=== PATIENT | female | born 1965 | race Caucasian/White ===

== ENCOUNTER 2017-04-20 07:26 | Day surgery (SDC) | payer OTHER ==
[2017-04-20] VITALS (10 sets, daily range): BP systolic 148–174; BP diastolic 57–68
[~2017-04-20] VITALS: Ht 167.6 cm; Wt 71.2 kg
--- OUTSIDE RECORDS SUMMARY | 2017-04-20 07:30 | XMS REPORT ---
Author Author SURY EPSTEIN Organization eClinicalWorks Address Unknown Phone Unavailable Care Team Providers Care Die Drawing Checker Name Role Phone SURY EPSTEIN CP Unavailable Allergies No Known Allergies Problems Problem Type Condition Code Onset Dates Condition Status Problem Tobacco abuse Z72.0 Active Problem Bradycardia R00.1 Active Problem LVH (left ventricular hypertrophy) I51.7 Active Problem Tobacco abuse counseling Z71.6 Active Problem Anxiety F41.9 Active Problem High risk medication use Z79.899 Active Problem Hyperglycemia R73.9 Active Problem Hypertension I10 Active Problem Chronic atrial fibrillation I48.2 Active Problem Hyperlipidemia E78.5 Active Problem Coronary artery disease I25.10 Active Medications Medication Code System Code Instructions Start Date End Date Status Dosage Xanax [facility] [address]-57 0.5 MG Orally Twice a day for extreme anxiety (Pt must follow up in January) 1 tablet Results No Known Results Summary Purpose eClinicalWorks Submission
--- OUTSIDE RECORDS SUMMARY | 2017-04-20 07:30 | XMS REPORT ---
Author Author GILLIAN FRAIRE [facility] eClinicalWorks Address Unknown Phone Unavailable Care Team Providers Care Vtc Technician Name Role Phone GILLIAN FRAIRE CP Unavailable Allergies, Adverse Reactions, Alerts Substance Reaction Event Type Daypro hives Drug Allergy Problems Problem Type Condition Code Onset Dates Condition Status Problem Tobacco abuse Z72.0 Active Problem Bradycardia R00.1 Active Problem LVH (left ventricular hypertrophy) I51.7 Active Problem Anxiety F41.9 Active Problem High risk medication use Z79.899 Active Problem Hyperglycemia R73.9 Active Problem Hypertension I10 Active Problem Chronic atrial fibrillation I48.2 Active Problem Hyperlipidemia E78.5 Active Problem Coronary artery disease I25.10 Active Assessment Bradycardia R00.1 Active Assessment Hypertension I10 Active Problem Tobacco abuse counseling Z71.6 Active Medications Medication Code System Code Instructions Start Date End Date Status Dosage Xanax [facility] [place] 2] [address]-92 0.5 MG Orally Twice a day for extreme anxiety (Pt must follow up in January) 1 tablet Albuterol Sulfate HFA [facility] [place]NOTE 2] [address]-21 108 (90 Base) MCG/ACT Inhalation every 4 hrs 2 puffs as needed Nitroglycerin [facility] [place] 2] [address]-27 0.4 MG Sublingual not defined Atenolol [facility] [place]NOTE 2] [address]-45 50 MG Orally Once a day 1 tablet Aspirin [facility] [place]NOTE 2] [address]-30 325 MG Orally Once a day 1 tablet Ibuprofen [facility] [place]NOTE 2] [address]-25 200 MG Orally every 6 hrs 1 tablet as needed Acetaminophen Extra Strength [facility] [place]NOTE 2] [address]-06 500 MG Orally every 6 hrs 1 tablet as needed Wellbutrin XL [facility] [place]NOTE 2] [address]-42 150 MG Orally Once a day 1 tablet in the morning Hydrochlorothiazide [facility] [place]NOTE 2] [address]-29 25 MG Orally Once a day 1 tablet Procedures Procedure Coding System Code Date Office Visit, Est Pt., Level 4 CPT-4 24881 December 13, 2015 MEASURE BLOOD OXYGEN LEVEL CPT-4 72170 December 13, 2015 Vital Signs Date/Time: December 13, 2015 Cardiac Monitoring Heart Rate 60 bpm Weight 156 lbs Height 64.5 in BMI 26.36 Index Oximetry 97 % Blood Pressure Diastolic 62 mmHg Blood Pressure Systolic 152 mmHg Results No Known Results Summary Purpose eClinicalWorks Submission
--- OUTSIDE RECORDS SUMMARY | 2017-04-20 07:30 | XMS REPORT ---
Author Author SURY EPSTEIN [facility] eClinicalWorks Address Unknown Phone Unavailable Care Team Providers Care Ranch Rider Name Role Phone SURY EPSTEIN CP Unavailable Allergies, Adverse Reactions, Alerts Substance Reaction Event Type Daypro hives Drug Allergy Problems Problem Type Condition Code Onset Dates Condition Status Assessment Hyperglycemia R73.9 Active Problem Tobacco abuse Z72.0 Active Problem Tobacco abuse counseling Z71.6 Active Assessment High risk medication use Z79.899 Active Assessment Anxiety F41.9 Active Problem Anxiety F41.9 Active Problem High risk medication use Z79.899 Active Problem Hyperglycemia R73.9 Active Problem Bradycardia R00.1 Active Problem LVH (left ventricular hypertrophy) I51.7 Active Problem Hypertension I10 Active Problem Chronic atrial fibrillation I48.2 Active Medications Medication Code System Code Instructions Start Date End Date Status Dosage Nitroglycerin [facility] [address]-06 0.4 MG Sublingual not defined Ibuprofen [facility] [address]-92 200 MG Orally every 6 hrs 1 tablet as needed Aspirin [facility] [address]-19 325 MG Orally Once a day 1 tablet Hydrochlorothiazide [facility] [address]-37 25 MG Orally Once a day 1 tablet Atenolol [facility] [address]-17 25 MG Orally Once a day 1 tablet Xanax [facility] [address]-89 0.5 MG Orally Twice a day for extreme anxiety 1 tablet Albuterol Sulfate HFA [facility] [address]-21 108 (90 Base) MCG/ACT Inhalation every 4 hrs 2 puffs as needed Wellbutrin XL [facility] [address]-31 150 MG Orally Once a day 1 tablet in the morning Procedures Procedure Coding System Code Date Office Visit, Est Pt., Level 3 CPT-4 98747 Aug 06, 2015 GLYCATED HEMOGLOBIN TEST CPT-4 58798 Aug 06, 2015 Vital Signs Date/Time: Aug 06, 2015 Temperature 97.5 F Weight 168.0 lbs Height 64.5 in BMI 28.39 Index Blood Pressure Diastolic 56 mmHg Blood Pressure Systolic 138 mmHg Cardiac Monitoring Heart Rate 55 bpm Results No Known Results Summary Purpose eClinicalWorks Submission
--- OUTSIDE RECORDS SUMMARY | 2017-04-20 07:30 | XMS REPORT ---
Author Author GILLIAN FRAIRE Organization eClinicalWorks Address Unknown Phone Unavailable Care Team Providers Care Aircraft Inspection Record Clerk Name Role Phone GILLIAN FRAIRE CP Unavailable Allergies No Known Allergies Problems Problem Type Condition Code Onset Dates Condition Status Assessment Chronic atrial fibrillation I48.2 Active Problem Tobacco abuse Z72.0 Active Problem Tobacco abuse counseling Z71.6 Active Problem Anxiety F41.9 Active Problem High risk medication use Z79.899 Active Problem Hyperglycemia R73.9 Active Problem Bradycardia R00.1 Active Problem LVH (left ventricular hypertrophy) I51.7 Active Problem Hypertension I10 Active Problem Chronic atrial fibrillation I48.2 Active Assessment Hypertension I10 Active Assessment Chest pain R07.9 Active Assessment Paroxysmal atrial fibrillation I48.0 Active Assessment Sinus bradycardia R00.1 Active Assessment Bradycardia R00.1 Active Medications No Known Medications Results Name Result Date Reference Range Unit Abnormality Flag Lexiscan Stress Nuclear Test Summary Purpose eClinicalWorks Submission
--- OUTSIDE RECORDS SUMMARY | 2017-04-20 07:30 | XMS REPORT ---
Author Author SURY EPSTEIN [facility] eClinicalWorks Address Unknown Phone Unavailable Care Team Providers Care Color Mixer Name Role Phone SURY EPSTEIN CP Unavailable Allergies, Adverse Reactions, Alerts Substance Reaction Event Type Daypro hives Drug Allergy Problems Problem Type Condition Code Onset Dates Condition Status Assessment Tobacco abuse counseling Z71.6 Active Assessment LVH (left ventricular hypertrophy) I51.7 Active Assessment Tobacco abuse Z72.0 Active Problem Bradycardia R00.1 Active Problem LVH (left ventricular hypertrophy) I51.7 Active Problem Chronic atrial fibrillation I48.2 Active Assessment Chronic atrial fibrillation I48.2 Active Assessment Bradycardia R00.1 Active Problem Tobacco abuse Z72.0 Active Problem Tobacco abuse counseling Z71.6 Active Medications Medication Code System Code Instructions Start Date End Date Status Dosage Atenolol [facility] [address]-77 25 MG Orally Once a day 1 tablet Aspirin [facility] [address]-67 325 MG Orally Once a day 1 tablet Xanax [facility] [address]-38 1 MG Orally every 8 hours as needed 1 tablet Albuterol Sulfate HFA [facility] [address]-88 108 (90 Base) MCG/ACT Inhalation every 4 hrs 2 puffs as needed Nitroglycerin [facility] [address]-43 0.4 MG Sublingual not defined Wellbutrin XL [facility] [address]-99 150 MG Orally Once a day 1 tablet in the morning Hydrochlorothiazide [facility] [address]-06 25 MG Orally Once a day 1 tablet Procedures Procedure Coding System Code Date ELECTROCARDIOGRAM, TRACING CPT-4 35088 Jul 09, 2015 Office Visit, New Pt., Level 3 CPT-4 76918 Jul 09, 2015 MEASURE BLOOD OXYGEN LEVEL CPT-4 57564 Jul 09, 2015 Vital Signs Date/Time: Jul 09, 2015 Temperature 97.6 F Weight 160.9 lbs Height 64.5 in Oximetry 98 % Blood Pressure Diastolic 78 mmHg Blood Pressure Systolic 128 mmHg Cardiac Monitoring Heart Rate 52 bpm BMI 27.19 Index Results No Known Results Summary Purpose eClinicalWorks Submission
--- OUTSIDE RECORDS SUMMARY | 2017-04-20 07:30 | XMS REPORT ---
Author Author GILLIAN FRAIRE Organization eClinicalWorks Address Unknown Phone Unavailable Care Team Providers Care Executive Casino Host Name Role Phone GILLIAN FRAIRE CP Unavailable Allergies, Adverse Reactions, Alerts Substance Reaction Event Type Daypro hives Drug Allergy Problems Problem Type Condition Code Onset Dates Condition Status Assessment Paroxysmal atrial fibrillation I48.0 Active Assessment Sinus bradycardia R00.1 Active Assessment Chest pain R07.9 Active Problem Chronic atrial fibrillation I48.2 Active Problem Bradycardia R00.1 Active Problem Hypertension I10 Active Problem Tobacco abuse counseling Z71.6 Active Assessment Hypertension I10 Active Problem LVH (left ventricular hypertrophy) I51.7 Active Problem Tobacco abuse Z72.0 Active Medications Medication Code System Code Instructions Start Date End Date Status Dosage Hydrochlorothiazide [facility] [address]-94 25 MG Orally Once a day 1 tablet Aspirin [facility] [address]-96 325 MG Orally Once a day 1 tablet Albuterol Sulfate HFA [facility] [address]-12 108 (90 Base) MCG/ACT Inhalation every 4 hrs 2 puffs as needed Nitroglycerin [facility] [address]-59 0.4 MG Sublingual not defined Atenolol [facility] [address]-83 25 MG Orally Once a day 1 tablet Ibuprofen [facility] [address]-80 200 MG Orally every 6 hrs 1 tablet as needed Xanax [facility] [address]-51 1 MG Orally every 8 hours as needed 1 tablet Wellbutrin XL [facility] [address]-35 150 MG Orally Once a day 1 tablet in the morning Procedures Procedure Coding System Code Date Office Visit, Est Pt., Level 5 CPT-4 72953 Jul 12, 2015 MEASURE BLOOD OXYGEN LEVEL CPT-4 23143 Jul 12, 2015 Vital Signs Date/Time: Jul 12, 2015 Cardiac Monitoring Heart Rate 60 bpm Weight 162 lbs Height 64.5 in BMI 27.37 Index Oximetry 98 % Blood Pressure Diastolic 54 mmHg Blood Pressure Systolic 138 mmHg Results No Known Results Summary Purpose eClinicalWorks Submission
--- OUTSIDE RECORDS SUMMARY | 2017-04-20 07:30 | XMS REPORT ---
Author Author SURY EPSTEIN Organization eClinicalWorks Address Unknown Phone Unavailable Care Team Providers Care C4 Planner Name Role Phone SURY EPSTEIN CP Unavailable Allergies No Known Allergies Problems Problem Type Condition Code Onset Dates Condition Status Problem Bradycardia R00.1 Active Problem LVH (left ventricular hypertrophy) I51.7 Active Problem Chronic atrial fibrillation I48.2 Active Assessment LVH (left ventricular hypertrophy) I51.7 Active Problem Tobacco abuse Z72.0 Active Problem Tobacco abuse counseling Z71.6 Active Medications No Known Medications Procedures Procedure Coding System Code Date COMPLETE CBC W/AUTO DIFF WBC CPT-4 60617 Jul 10, 2015 LIPID PANEL CPT-4 27369 Jul 10, 2015 ASSAY OF MAGNESIUM CPT-4 70546 Jul 10, 2015 VENIPUNCT, ROUTINE* CPT-4 03817 Jul 10, 2015 COMPREHEN METABOLIC PANEL CPT-4 21794 Jul 10, 2015 Results Name Result Date Reference Range Unit Abnormality Flag ROUTINE VENIPUNCTURE Summary Purpose eClinicalWorks Submission
--- OUTSIDE RECORDS SUMMARY | 2017-04-20 07:30 | XMS REPORT | Continuity of Care Document ---
Author Author [facility] Organization [facility] Address Unknown Phone Unavailable Allergies Active Description Code Type Severity Reaction Onset Reported/Identified Relationship to Patient Clinical Status Yes oxaprozin [id number] Drug Allergy Unknown N/A 07/30/2015 Medications Problems Date Dx Coded Attending Type Code Diagnosis Diagnosed By 07/30/2015 GILLIAN FRAIRE MD, FACC, FACP CCDS Ot I48.0 07/30/2015 GILLIAN FRAIRE MD, FACC, FACP CCDS Ot R00.1 Procedures Results Encounters ACCT No. Visit Date/Time Discharge Status Pt. Type Provider Facility Loc./Unit Complaint [id number] 07/30/2015 10:53:00 2014 23:59:59 CLS Outpatient GILLIAN FRAIRE MD, FACC FACP CCDS [facility] CARD [id number] 07/29/2015 13:40:00 2014 23:59:59 CLS Outpatient GILLIAN FRAIRE MD, FACC FACP CCDS [facility] CARD [id number] 04/20/2017 07:26:00 ACT Outpatient GILLIAN FRAIRE MD, FACC FACP CCDS [facility] CATH STABLE ANGINA PECTORIS,HTN [id number] 04/20/2017 07:22:00 ACT Outpatient MARCE OLIVAS [facility] CARD I25.10
[2017-04-20] MEDS ORDERED: HEParin (CATH LAB) 2,000 ML IV ONE (08:18)
[2017-04-20] MEDS ORDERED: NS IV 1000 ML 1,000 ML ONE (08:18)
[2017-04-20] MEDS ORDERED: NS IV 1000 ML 1,000 ML IV SCH ×2 (09:15→12:09)
[2017-04-20 09:30] LABS: MEAN PLATELET VOLUME 9.4 FL (7.4-10.4); RED BLOOD COUNT 4.43 10^6/uL (4.35-5.85); RED CELL DISTRIBUTION WIDTH 11.8 % (10.0-14.5); WHITE BLOOD COUNT 7.6 10^3/uL (4.3-11.0)
[2017-04-20 09:40] LABS: INR 0.9 (0.8-1.4); PROTHROMBIN TIME PATIENT 12.4 SEC (12.2-14.7)
[2017-04-20 09:49] LABS: ALBUMIN 4.9 GM/DL (3.2-4.5); BILIRUBIN,TOTAL 0.5 MG/DL (0.1-1.0); CALCIUM 9.9 MG/DL (8.5-10.1); POTASSIUM 4.5 MMOL/L (3.6-5.0); TOTAL PROTEIN 7.7 GM/DL (6.4-8.2)
[2017-04-20] MEDS ORDERED: GEMF600T3 PO (10:05)
[2017-04-20] MEDS ORDERED: NITR0.4T SL (10:05)
[2017-04-20] MEDS ORDERED: ATEN50TA PO (10:05)
[2017-04-20] MEDS ORDERED: HYDR25TA4 PO (10:05)
[2017-04-20] MEDS ORDERED: RT-ALBUINH IH (10:05)
[2017-04-20] MEDS ORDERED: DICL100G18 TP (10:05)
[2017-04-20] MEDS ORDERED: LISI40TA PO (10:05)
[2017-04-20] MEDS ORDERED: ACET-2650 PO (10:05)
[2017-04-20] MEDS ORDERED: ASPI325T32 PO (10:05)
[2017-04-20] MEDS ORDERED: IBUP-30 PO (10:05)
[2017-04-20] MEDS ORDERED: ALPR0.5T PO (10:05)
[2017-04-20] MEDS ORDERED: BUPR-42 PO (10:05)
[2017-04-20] MEDS ORDERED: diphenhydrAMINE 50 MG/ML INJ (BENADRYL) ONE (10:40)
[2017-04-20] MEDS ORDERED: fentaNYL INJECTION 100 MCG/2 ML AMP ONE (10:40)
[2017-04-20] MEDS ORDERED: MIDAZOLAM 5 MG/5 ML (VERSED) VIAL ONE (10:40)
--- NOTE | 2017-04-20 11:16 | Cardiac Procedure Note-CS/ASA ---
Pre-Procedure Note Pre-Op Procedure Note H&P Reviewed The H&P was reviewed, patient examined and no changes noted. Date H&P Reviewed: Apr 20, 2017 Time H&P Reviewed: 11:16 Conscious Sedation Pre-Proced Time Reviewed: 11:16 ASA Class: 3 Airway Mallampati Classification: ([place] appropriate class) I. II. III, IV Lungs Heart ASA score ASA 1: a normal healthy patient ASA 2: a patient with a mild systemic disease (mid diabetes, controlled hypertension, obesity ASA 3: a patient with a severe systemic disease that limits activity (angina , COPD, prior Myocardial infarction) ASA 4: a patient with an incapacitating disease that is a constant threat to life (CHF, renal failure) ASA 5: a moribund patient not expected to survive 24 hrs. (ruptured aneurysm) ASA 6: a declared brain patient whose organs are being harvested. For emergent operations, add the letter E after the classification Grade 3 Sedation Plan: Analgesia, Amnesia, Plan communicated to team members, Discussed options with patient/fam, Discussed risks with patient/fam Note The patient is an appropriate candidate to undergo the planned procedure, sedation, and anesthesia. The patient immediately re-assessed prior to indication. GILLIAN FRAIRE MD FACP FAC CCDS Apr 20, 2017 11:16
--- NOTE | 2017-04-20 12:14 | Discharge Inst-Post CATH ---
Discharge Inst-CATH Post Cardiac Cath D/C Inst Follow Up/Plan F/u with Dr Dsouza on 04/22/[address] Sheikh in surgical consultation for aortic valve repair as soon as possible Return to ER in case of worsening of symptoms CARDIAC CATH DISCHARGE INSTRUCTIONS *Hold Metformin for 48 hours post heart cath. ACTIVITY * Go Home directly and rest. * Limit activity of the leg (or wrist if it was used) for 7 days including aerobics, swimming, jogging, bicycling, etc. * Restrict stair-climbing for 7 days if possible, if not, climb up with your non -cath leg, then bring together on the same step. * Avoid lifting, pushing, pulling or excessive movement of the affected extremity for 7 days. * Customary sexual activity may be resumed after 2 days-use caution not to use a position that strains or causes pain to the affected extremity. * No driving for 24 hours. * NO SMOKING. * Avoid straining for bowel movements for 7 days. * Gentle walking on level ground is allowed. * Returning to work will depend on the type of procedure and the results. Your doctor will discuss this with you. CALL YOUR DOCTOR FOR ANY OF THE FOLLOWING: *If bleeding from the puncture site occurs- Apply gentle pressure to site with clean cloth and call your doctor or EMS. * If a knot or lump forms under the skin, increases in size, or causes pain. * If bruising appears to be worsening or moving further down your leg instead of disappearing. * Temperature above 101 F. CARE OF YOUR GROIN INCISION; * Bruising or purple discoloration of the skin near the puncture site is common. * You may shower only, no bathtub bathing for 5 days. Be careful to avoid slipping as your leg may feel stiff. * If a closure device was used on your femoral artery, please see the attached guide regarding care of the device and your leg. * REMOVE the dressing from your groin the next day after your procedure in the shower. CARE OF YOUR WRIST INCISION; * Bruising or purple discoloration of the skin near the puncture site is common. * You may shower. * DO NOT submerge wrist. * Remove dressing in 24 hours. GILLIAN DSOUZA MD [facility] CCDS Apr 20, 2017 12:14
[2017-04-20] MEDS ORDERED: PATIENT MAY USE OWN MEDS, ALL PO SCH (12:15)
[2017-04-20] MEDS ORDERED: KCL 20 MEQ TAB (K-DUR) PO ONE (12:15)
[2017-04-20] MEDS ORDERED: FUROSEMIDE 40 MG/4 ML INJ (LASIX) IVP ONE (12:15)
[2017-04-20] MEDS ORDERED: POTA-53 PO (12:17)
[2017-04-20] MEDS ORDERED: FURO80TA3 PO (12:17)
--- NOTE | 2017-04-20 12:18 | Discharge Inst-Cardiology ---
Discharge Inst-Cardiac Discharge Medications New Medications: Furosemide (Furosemide) 80 Mg Tablet 80 MG PO DAILY, #30 TAB 3 Refills Potassium Chloride (K-Tab ER) 20 Meq Tablet.er 20 MEQ PO DAILY, #30 TAB 3 Refills Continued Medications: Acetaminophen (Tylenol Arthritis) 650 Mg Tablet.er 1300 MG PO DAILY, TAB TAKES 2 (650MG) TABLETS Albuterol Sulfate (Proventil Hfa) 6.7 Gm Hfa.aer.ad 2 PUFF IH Q4H PRN for SHORTNESS OF BREATH, EACH Alprazolam (Xanax) 0.5 Mg Tablet 0.5 MG PO DAILY, TAB Alprazolam (Xanax) 0.5 Mg Tablet 0.5 MG PO DAILY PRN for ANXIETY, TAB TAKES 1 TABLET DAILY SCHEDULED AND MAY TAKE 1 ADDITIONAL TABLET THROUGHOUT THE DAY NEEDED FOR ANXIETY Aspirin (Aspirin EC) 325 Mg Tablet.dr 325 MG PO DAILY, TAB Atenolol (Atenolol) 50 Mg Tablet 50 MG PO DAILY, TAB Bupropion HCl (Wellbutrin Xl) 150 Mg Tab.er.24h 150 MG PO DAILY, TAB Gemfibrozil (Gemfibrozil) 600 Mg Tablet 600 MG PO BID, TAB Lisinopril (Lisinopril) 40 Mg Tablet 20 MG PO BID, TAB TAKES 1/2 (40MG) TABLET Discontinued Medications: Diclofenac Sodium (Voltaren) 100 Gm Gel..gram. TP QID PRN for JOINT PAIN, TUBE Hydrochlorothiazide (Hydrochlorothiazide) 25 Mg Tablet 25 MG PO DAILY, TAB Ibuprofen (Advil) 200 Mg Tablet 400 MG PO Q6H PRN for PAIN-MILD, TAB TAKES 2 (200MG) TABLETS Nitroglycerin (Nitrostat) 0.4 Mg Tab.subl 0.4 MG SL UD PRN for CHEST PAIN, TAB GILLIAN FRAIRE MD [facility] CCDS Apr 20, 2017 12:18
--- NOTE | 2017-04-20 12:31 | CARDIAC CATHETERIZATION ---
DATE OF SERVICE: 04/20/2017 CARDIAC CATHETERIZATION The patient is a 51-year-old lady who has chronic intermittent chest discomfort and exertional shortness of breath which has progressed lately. For the last several weeks, she has had more chest discomfort and shortness of breath. Cardiac catheterization was carried out today after having obtained an informed consent. PROCEDURE: She was brought to the cardiac catheterization laboratory in a fasting state. Right groin was prepared and draped in usual sterile fashion. Lidocaine 1% local anesthesia. Modified Seldinger technique was used to advance a 5-Tunisian sheath in the right femoral artery. Angiography of the right femoral artery was carried out through the sheath. A 5-Tunisian JL4 catheter, left coronary angiography. We were not able to engage the right coronary artery with a 5-Tunisian JR4 catheter. We carried out left heart catheterization with a 5-Tunisian pigtail catheter. Left ventricular angiography was performed. The pigtail catheter was pulled back to the aortic root and aortic root angiography was performed. The catheter was then removed. We tried to engage the right coronary artery with a Ellis right catheter. This did not succeed, but nonselective injections did indicate that the right coronary artery was small and nondominant, high in origin and originating either from the left or the noncoronary sinus. We were then able to engage it selectively with a 5-Tunisian AL2 catheter and carry out angiography. The catheter was removed. We used a pigtail to carry out abdominal aortic angiography. This was done because the patient has severe hypertension that is associated with left ventricular hypertrophy and left ventricular dysfunction. We wanted to evaluate for renal artery stenosis. The catheter was then removed. Mynx was used to achieve hemostasis following sheath removal. She tolerated the procedure well. HEMODYNAMICS: Left ventricular end-diastolic pressure following coronary angiography was 31 mmHg. There was no significant pressure gradient across the aortic valve. Ascending aortic pressure was 162/58 with a mean 89 mmHg. LEFT VENTRICULAR ANGIOGRAPHY: Left ventricular angiography was carried out in the right anterior oblique projection. Global left ventricular systolic function is normal. No regional wall motion abnormalities seen. Left ventricular ejection fraction is 55% to 60%. There does not appear to be significant mitral regurgitation. AORTIC ROOT ANGIOGRAPHY: Aortic root angiography indicates moderately severe to severe aortic regurgitation. There does not appear to be ascending aortic aneurysm or dissection. CORONARY ANGIOGRAPHY: Left main coronary artery is very short. It does not exhibit significant obstructive disease. Left anterior descending artery does not exhibit significant disease. The left circumflex artery has mild diffuse plaques. 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 It is nondominant and exhibits diffuse mild plaques. CONCLUSIONS: 1. Moderately severe to severe aortic regurgitation. 2. Elevated left ventricular end-diastolic pressure. 3. Normal global left ventricular systolic function with ejection fraction of 55% to 60%. 4. No significant mitral regurgitation. 5. Mild coronary artery disease. DISCUSSION AND RECOMMENDATIONS: Based on results of the study, we will refer for evaluation for aortic valve surgery, given moderately severe to severe aortic regurgitation in presence of symptoms and evidence of diastolic heart failure (elevated left ventricular end diastolic pressure). We are adding diuretics to the regimen. Beta margaret therapy is being continued. Close clinical follow up is recommended. Job ID: [id number] DocumentID: [id number] Dictated Date: 04/20/2017 11:56:34 Master Plumber Date: 04/20/2017 12:30:22 Dictated By: GILLIAN FRAIRE MD, MA, FACP, FACC, MTDD
== END 2017-04-20 16:00 | disposition home or self-care (01) ==
LOC: CATH 07:26
PROVIDERS: ATTEND Internal Medicine Cardiovascular Disease
DX: R07.89 Other chest pain (principal); I35.1 Nonrheumatic aortic (valve) insufficiency; I25.10 Atherosclerotic heart disease of native coronary artery without angina pectoris; E78.5 Hyperlipidemia, unspecified; I10 Essential (primary) hypertension; R06.02 Shortness of breath; Z72.0 Tobacco use; Z79.899 Other long term (current) drug therapy
CPT/HCPCS: 36415; 75625; 80053; 80061; 85027; 85610; 85730; 87081; 93005; 93458; 93567

== ENCOUNTER → 2017-04-20 | Outpatient (CLI) | payer OTHER ==
[~2017-04-20] MED LIST: ACET-2650 PO; ALPR0.5T PO; ASPI325T32 PO; ATEN50TA PO; BUPR-42 PO; DICL100G18 TP; FURO80TA3 PO; FUROSEMIDE 40 MG/4 ML INJ (LASIX) ONE; GEMF600T3 PO; HYDR25TA4 PO; IBUP-30 PO; LISI40TA PO; NITR0.4T SL; POTA-53 PO; RT-ALBUINH IH
== END ==
LOC: CARD 07:22
PROVIDERS: ATTEND Nurse Practitioner Family
DX: I25.118 Atherosclerotic heart disease of native coronary artery with other forms of angina pectoris (principal); R00.2 Palpitations
CPT/HCPCS: 93306

== ENCOUNTER → 2017-04-22 | Outpatient (CLI) | payer OTHER ==
[~2017-04-22] MED LIST changes: -FUROSEMIDE 40 MG/4 ML INJ (LASIX) ONE
[2017-04-22 13:39] LABS: POTASSIUM 3.8 MMOL/L (3.6-5.0)
[2017-04-22 13:40] LABS: CALCIUM 9.3 MG/DL (8.5-10.1); MAGNESIUM 2.3 MG/DL (1.8-2.4)
== END ==
LOC: LAB 13:03
PROVIDERS: ATTEND Internal Medicine Cardiovascular Disease
DX: I50.32 Chronic diastolic (congestive) heart failure (principal); I35.1 Nonrheumatic aortic (valve) insufficiency
CPT/HCPCS: 36415; 80048; 83735

== ENCOUNTER → 2017-12-07 | Outpatient (CLI) | payer SELFPAY | LOC: CARD 11:45 | PROVIDERS: ATTEND Nurse Practitioner Family | DX: M79.89 Other specified soft tissue disorders (principal); Z95.3 Presence of xenogenic heart valve; R06.09 Other forms of dyspnea; I35.1 Nonrheumatic aortic (valve) insufficiency | CPT/HCPCS: 93306; 93923 ==

== ENCOUNTER 2019-08-01 07:01 | Day surgery (SDC) | payer OTHER ==
[2019-08-01] VITALS (11 sets, daily range): BP systolic 99–136; BP diastolic 52–77
[~2019-08-01] VITALS: Ht 162 cm; Wt 80.0 kg
[~2019-08-01 07:01] MED LIST changes: -GEMF600T3 PO; +GEMF600T8 PO
[2019-08-01] MEDS ORDERED: NS IV 1000 ML 1,000 ML IV SCH ×2 (07:15→09:18)
[2019-08-01 07:36] LABS: HEMOGLOBIN 13.4 G/DL (11.5-16.0); MEAN PLATELET VOLUME 9.2 FL (7.4-10.4); RED CELL DISTRIBUTION WIDTH 12.7 % (10.0-14.5); WHITE BLOOD COUNT 14.3 10^3/uL (4.3-11.0)
[2019-08-01 07:49] LABS: PROTHROMBIN TIME PATIENT 13.1 SEC (12.2-14.7)
[2019-08-01 07:54] LABS: ALANINE AMINOTRANSFERASE 26 U/L (0-55); ALKALINE PHOSPHATASE 102 U/L (40-136); BILIRUBIN,TOTAL 0.7 MG/DL (0.1-1.0); BUN/CREATININE RATIO 26; CALCIUM 9.8 MG/DL (8.5-10.1); CARBON DIOXIDE 20 MMOL/L (21-32); CHLORIDE 105 MMOL/L (98-107); CHOLESTEROL 185 MG/DL (< 200); CREATININE SERUM 0.85 MG/DL (0.60-1.30); GFR ESTIMATED > 60; GLUCOSE 94 MG/DL (70-105); HDL CHOLESTEROL 45 MG/DL (40-60); POTASSIUM 4.3 MMOL/L (3.6-5.0); SODIUM 137 MMOL/L (135-145); TOTAL PROTEIN 7.8 GM/DL (6.4-8.2); TRIGLYCERIDES 365 MG/DL (<150); VLDL CHOLESTEROL 73 MG/DL (5-40)
[2019-08-01] MEDS ORDERED: AMLO10TA7 PO (07:59)
[2019-08-01] MEDS ORDERED: CARV25TA PO (07:59)
[2019-08-01] MEDS ORDERED: HYDR25TA4 PO (07:59)
[2019-08-01] MEDS ORDERED: ATOR40TA70 PO (07:59)
[2019-08-01] MEDS ORDERED: LISI40TA PO (07:59)
[2019-08-01] MEDS ORDERED: TRAM50TA2 PO (07:59)
[2019-08-01] MEDS ORDERED: MIDAZOLAM 5 MG/5 ML (VERSED) VIAL ONE (08:36)
[2019-08-01] MEDS ORDERED: fentaNYL INJECTION 100 MCG/2 ML AMP ONE (08:36)
--- NOTE | 2019-08-01 09:16 | NUR ---
SPOKE WITH THE PT (SHE HAD A MED LIST) WELL CALLING [facility] TO COMPLETE THE MED REC. THE PT WAS ABLE TO TELL ME HOW/WHEN SHE TAKES EACH MED AND THE DIRECTIONS MATCHED THOSE AT [facility] WELL HAVING GOOD DATING. THE FOLLOWING ARE FILL DATES FROM THE PHARMACY: 05-10-2019 ATORVASTATIN #90/90DS 06-08-2019 LISINOPRIL #90/90DS 06-20-2019 XANAX #60 07-26-2019 TRAMADOL #30/30DS 07-26-2019 HCTZ #90/90DS 07-26-2019 CARVEDILOL #180/90DS 07-26-2019 AMLODIPINE #90/90DS 07-26-2019 BUPROPION #90/90DS ALBUTEROL HFA THEY DID NOT HAVE RECORD BUT PT ONLY USES PRN AND IT MAY HAVE BEEN AN OLD RX. OTC MEDS: ASPIRIN TYLENOL
--- NOTE | 2019-08-01 09:18 | Cardiac Procedure Note-CS/ASA ---
Pre-Procedure Note Pre-Op Procedure Note H&P Reviewed The H&P was reviewed, patient examined and no changes noted. Date H&P Reviewed: Aug 01, 2019 Time H&P Reviewed: 08:40 Conscious Sedation Pre-Proced Time 08:40 ASA Score 3 For ASA 3 and 4: Consider anesthesia and medical clearance. Also, for patients with a history of failed moderate sedation consider anesthesia. Airway Lungs Heart ASA score ASA 1: a normal healthy patient ASA 2: a patient with a mild systemic disease (mid diabetes, controlled hypertension, obesity ASA 3: a patient with a severe systemic disease that limits activity (angina, COPD, prior Myocardial infarction) ASA 4: a patient with an incapacitating disease that is a constant threat to life (CHF, renal failure) ASA 5: a moribund patient not expected to survive 24 hrs. (ruptured aneurysm) ASA 6: a declared brain- patient whose organs are being harvested. For emergent operations, add the letter E after the classification Mallampati Classification Grade 2 Sedation Plan Analgesia, Amnesia, Plan communicated to team members, Discussed options with patient/fam, Discussed risks with patient/fam The patient is an appropriate candidate to undergo the planned procedure, sedation, and anesthesia. The patient immediately re-assessed prior to indication. GILLIAN FRAIRE MD FACP FAC CCDS Aug 01, 2019 09:18 POS
--- NOTE | 2019-08-01 09:23 | Discharge Inst-Cardiology ---
Discharge Inst-Cardiac Discharge Medications Continued Medications: Acetaminophen (Tylenol Arthritis) 650 Mg Tablet.er 1300 MG PO BID PRN for PAIN-MILD (1-4), TAB TAKES 2 (650MG) TABLETS Albuterol Sulfate (Proventil Hfa) 6.7 Gm Hfa.aer.ad 2 PUFF IH Q4H PRN for SHORTNESS OF BREATH, EACH Alprazolam (Xanax) 0.5 Mg Tablet 0.5 MG PO DAILY, TAB Alprazolam (Xanax) 0.5 Mg Tablet 0.5 MG PO DAILY PRN for ANXIETY, TAB TAKES 1 TABLET DAILY SCHEDULED AND MAY TAKE 1 ADDITIONAL TABLET THROUGHOUT THE DAY NEEDED FOR ANXIETY Amlodipine Besylate (Amlodipine Besylate) 10 Mg Tablet 10 MG PO HS, TAB Aspirin (Aspirin EC) 325 Mg Tablet.dr 325 MG PO DAILY, TAB Atorvastatin Calcium (Atorvastatin Calcium) 40 Mg Tablet 40 MG PO HS, TAB Bupropion HCl (Wellbutrin Xl) 150 Mg Tab.er.24h 150 MG PO DAILY, TAB Carvedilol (Carvedilol) 25 Mg Tablet 25 MG PO BID, TAB Hydrochlorothiazide (Hydrochlorothiazide) 25 Mg Tablet 25 MG PO DAILY, TAB Lisinopril (Lisinopril) 40 Mg Tablet 40 MG PO DAILY, TAB Tramadol HCl (Tramadol HCl) 50 Mg Tablet 50 MG PO HS, TAB Patient Instructions Patient Instructions: Follow up with your primary care physician as soon as possible for evaluation and treatment of elevated white count seen on lab work of 08/01/19 GILLIAN FRAIRE MD [facility] CCDS Aug 01, 2019 09:23 POS
--- NOTE | 2019-08-01 09:23 | Discharge Inst-Post CATH ---
Discharge Inst-CATH/EP Post Cardiac Cath/EP D/C Inst Follow Up/Plan F/u with Dr Dsouza in 1-2 weeks Follow up with your primary care physician as soon as possible for evaluation and treatment of elevated white count seen on lab work of 08/01/19 ACTIVITY * Go Home directly and rest. * Limit activity of the leg (or wrist if it was used) for 7 days including aerobics, swimming, jogging, bicycling, etc. * Restrict stair-climbing for 7 days if possible, if not, climb up with your non-cath leg, then bring together on the same step. * Avoid lifting, pushing, pulling or excessive movement of the affected extremity for 7 days. * Customary sexual activity may be resumed after 2 days-use caution not to use a position that strains or causes pain to the affected extremity. * No driving for 24 hours. * NO SMOKING. * Avoid straining for bowel movements for 7 days. * Gentle walking on level ground is allowed. * Returning to work will depend on the type of procedure and the results. Your doctor will discuss this with you. CALL YOUR DOCTOR FOR ANY OF THE FOLLOWING: *If bleeding from the puncture site occurs- Apply gentle pressure to site with clean cloth and call your doctor or EMS. * If a knot or lump forms under the skin, increases in size, or causes pain. * If bruising appears to be worsening or moving further down your leg instead of disappearing. * Temperature above 101 F. CARE OF YOUR GROIN INCISION; * Bruising or purple discoloration of the skin near the puncture site is common. * You may shower only, no bathtub bathing for 5 days. Be careful to avoid slipping as your leg may feel stiff. * If a closure device was used on your femoral artery, please see the attached guide regarding care of the device and your leg. * Leave dressing on FOR 24 hours. CARE OF YOUR WRIST INCISION; * Bruising or purple discoloration of the skin near the puncture site is common. * You may shower. * DO NOT submerge wrist. * Leave dressing on FOR 24 hours. GILLIAN DSOUZA MD FACP FAC CCDS Aug 01, 2019 09:23 POS
[2019-08-01] MEDS ORDERED: PATIENT MAY USE OWN MEDS, ALL PO SCH (09:30)
--- NOTE | 2019-08-01 12:56 | CARDIAC CATHETERIZATION ---
DATE OF SERVICE: 08/01/2019 CARDIAC CATHETERIZATION REPORT The patient is a 53-year-old lady who has had aortic valve replacement in 2017 with a bioprosthetic valve for severe aortic regurgitation. She has multiple coronary artery disease risk factors. She has lately been experiencing symptoms that are suggestive of angina. She has been worried about her heart artery blockage and had requested a cardiac catheterization. Given the symptoms and history, this appeared reasonable. Informed consent was obtained. DESCRIPTION OF PROCEDURE: She was brought to the cardiac catheterization laboratory in a fasting state. Right groin was prepared and draped in the usual sterile fashion. 1% lidocaine was used as local anesthesia. Modified Seldinger technique was used to advance a 5-Turkish sheath into the right femoral artery, 5-Turkish JL4 catheter for left coronary angiography, 5-Turkish JR4 catheter was used for right coronary angiography, 5-Turkish pigtail catheter was used to carry out aortic root angiography. We did not cross the aortic valve. CORONARY ANGIOGRAPHY: Left main coronary artery is very short. There are essentially two separate ostia for the left circumflex and the left anterior descending. These arteries exhibit mild plaque. Left circumflex artery is dominant. Right coronary artery is very small and nondominant. It does not exhibit significant disease. AORTIC ROOT ANGIOGRAPHY: Aortic root angiography was performed because the patient had aortic valve replacement surgery. A bioprosthetic valve is seen in position. There is mild aortic regurgitation. The aortic valve leaflets exhibit fair to good leaflet excursion. There does not appear to be any ascending aortic aneurysm or dissection. CONCLUSIONS: 1. Mild coronary artery disease in a left-dominant coronary system. 2. Bioprosthetic aortic valve functioning adequately. 3. Mild aortic regurgitation. DISCUSSION AND RECOMMENDATIONS: Based on results of the study, it appears appropriate to continue a conservative approach. Risk factor modification has been reviewed. Outpatient followup is advised. Job ID: [id number] DocumentID: [id number] Dictated Date: 08/01/2019 09:16:04 Seamless Tube Drawer Date: 08/01/2019 12:56:32 Dictated By: GILLIAN FRAIRE MD, MA, FACP, FACC, MTDD
== END 2019-08-01 12:30 | disposition home or self-care (01) ==
LOC: CATH 07:01 → SDC 09:36 → CATH 12:30
PROVIDERS: ATTEND Internal Medicine Cardiovascular Disease
DX: I25.10 Atherosclerotic heart disease of native coronary artery without angina pectoris (principal); I35.1 Nonrheumatic aortic (valve) insufficiency; I11.9 Hypertensive heart disease without heart failure; I48.91 Unspecified atrial fibrillation; I25.2 Old myocardial infarction; J44.9 Chronic obstructive pulmonary disease, unspecified; K21.9 Gastro-esophageal reflux disease without esophagitis; F17.200 Nicotine dependence, unspecified, uncomplicated; Z79.899 Other long term (current) drug therapy; Z88.8 Allergy status to other drugs, medicaments and biological substances; Z95.2 Presence of prosthetic heart valve
CPT/HCPCS: 36415; 80053; 80061; 85027; 85610; 85730; 87081; 93454; 93567